=== PATIENT | male | born 1975 | race Two or more races ===

== ENCOUNTER 2023-06-03 14:48 | Emergency (ER) | payer MEDICAID, OTHER ==
[~2023-06-03] VITALS: Ht 172.7 cm; Wt 80.0 kg
[2023-06-03] MEDS: LORazepam 2MG/ML-1ML VIAL IM ONE (15:25)
[2023-06-03] MEDS: KETOROLAC TROMETH 60MG/2ML VIAL IM ONE (20:52)
[2023-06-03] MEDS ORDERED: HYDR-4902 PO (21:50)
[2023-06-03 21:57] VITALS: BP 123/94; TEMP 98.3
[2023-06-03 22:15] VITALS: PULSE 82; RESP 16; O2SAT 95
== END 2023-06-03 22:20 | disposition home or self-care (01) ==
LOC: ER 14:48 → EDBD 14:48 → ER 22:06
DX: G89.29 Other chronic pain (principal); M54.9 Dorsalgia, unspecified; F41.9 Anxiety disorder, unspecified; F15.10 Other stimulant abuse, uncomplicated; Z59.00 Homelessness unspecified
CPT/HCPCS: 96372; 99284; J1885; J2060